=== PATIENT | male | born 1995 | race Caucasian/White ===

== ENCOUNTER 2017-04-01 08:49 | Emergency (ER) | payer OTHER ==
[~2017-04-01] VITALS: Ht 185.4 cm; Wt 80.0 kg
[~2017-04-01 08:49] MED LIST: DOXY100T PO
--- NOTE | 2017-04-01 09:28 | PD ---
HPI Chief Complaint: Medical Clearance Time Seen by Provider: 09:24 Travel History International Travel<30 days: No Contact w/Intl Traveler<30days: No History of Present Illness HPI PATIENT IS IN [facility], HE WAS DOING SQUAT JUMPS, STARTED TO BECOME LIGHTHEADED, AND SHAKY...EMS CALLED AND EVALUATED AND SENT IN TO ER FOR FURTHER EVALUATION.... NKDA, NO PMHX , NO PSHX PFSH Past Medical History Medical History: Denies Significant Hx Diminished Hearing: No Immunizations Current: No Past Surgical History Surgical History: No Previous Surgery Social History Alcohol Use: Yes (socially) Tobacco Use: No Substance Use: No Allergies-Medications (Allergen,Severity, Reaction): Coded Allergies: No Known Allergies (Unverified , 01/02/16) Reported Meds & Prescriptions Reported Meds & Active Scripts Active No Active Prescriptions or Reported Medications Review of Systems Except as stated in HPI: all other systems reviewed are Neg HENT: Positive: Lightheadedness Physical Exam Narrative GENERAL: SKIN: Warm and dry. HEAD: Atraumatic. Normocephalic. EYES: Pupils equal and round. No scleral icterus. No injection or drainage. ENT: No nasal bleeding or discharge. Mucous membranes pink and moist. NECK: Trachea midline. No JVD. CARDIOVASCULAR: Regular rate and rhythm. RESPIRATORY: No accessory muscle use. Clear to auscultation. Breath sounds equal bilaterally. GASTROINTESTINAL: Abdomen soft, non-tender, nondistended. Hepatic and splenic margins not palpable. MUSCULOSKELETAL: Extremities without clubbing, cyanosis, or edema. No obvious deformities. NEUROLOGICAL: Awake and alert. No obvious cranial nerve deficits. Motor grossly within normal limits. Five out of 5 muscle strength in the arms and legs. Normal speech. PSYCHIATRIC: Appropriate mood and affect; insight and judgment normal. Data Data Last Documented VS Vital Signs Date Time Temp Pulse Resp B/P (MAP) Pulse Ox O2 Delivery O2 Flow Rate FiO2 04/01/17 09:46 64 14 120/62 (81) 83 15 127/69 (88) 77 17 124/72 (89) 04/01/17 09:45 98.3 99 Room Air Orders Orders Electrocardiogram (04/01/17 09:24) Complete Blood Count With Diff (04/01/17 09:24) Comprehensive Metabolic Panel (04/01/17 09:24) Creatine Kinase (Cpk) (04/01/17 09:24) Thyroid Stimulating Hormone (04/01/17 09:24) Chest, Single Ap (04/01/17 09:24) Ct Brain W/O Iv Contrast(Rout) (04/01/17 09:24) Iv Access Insert/Monitor (04/01/17 09:24) Ecg Monitoring (04/01/17 09:24) Oximetry (04/01/17 09:24) Orthostatic Vital Signs (04/01/17 09:24) Blood Glucose (04/01/17 09:24) Drug Screen, Random Urine (04/01/17 09:24) Alcohol (Ethanol) (04/01/17 09:24) Salicylates (Aspirin) (04/01/17 09:24) Tylenol (Acetaminophen) (04/01/17 09:24) Sodium Chlor 0.9% 1000 Ml Inj (Ns 1000 M (04/01/17 10:45) Labs Laboratory Tests Test 04/01/17 09:20 White Blood Count 14.0 TH/MM3 Red Blood Count 5.11 MIL/MM3 Hemoglobin 15.6 GM/DL Hematocrit 45.3 % Mean Corpuscular Volume 88.6 FL Mean Corpuscular Hemoglobin 30.6 PG Mean Corpuscular Hemoglobin Concent 34.5 % Red Cell Distribution Width 12.9 % Platelet Count 264 TH/MM3 Mean Platelet Volume 8.3 FL Neutrophils (%) (Auto) 83.5 % Lymphocytes (%) (Auto) 9.6 % Monocytes (%) (Auto) 6.4 % Eosinophils (%) (Auto) 0.2 % Basophils (%) (Auto) 0.3 % Neutrophils # (Auto) 11.7 TH/MM3 Lymphocytes # (Auto) 1.3 TH/MM3 Monocytes # (Auto) 0.9 TH/MM3 Eosinophils # (Auto) 0.0 TH/MM3 Basophils # (Auto) 0.0 TH/MM3 CBC Comment DIFF FINAL Differential Comment Blood Urea Nitrogen 19 MG/DL Creatinine 1.35 MG/DL Random Glucose 97 MG/DL Total Protein 7.7 GM/DL Albumin 4.6 GM/DL Calcium Level 9.1 MG/DL Alkaline Phosphatase 51 U/L Aspartate Amino Transf (AST/SGOT) 22 U/L Alanine Aminotransferase (ALT/SGPT) 34 U/L Total Bilirubin 1.0 MG/DL Sodium Level 139 MEQ/L Potassium Level 3.5 MEQ/L Chloride Level 105 MEQ/L Carbon Dioxide Level 26.0 MEQ/L Anion Gap 8 MEQ/L Estimat Glomerular Filtration Rate 66 ML/MIN Total Creatine Kinase 270 U/L Thyroid Stimulating Hormone 3rd Gen 2.350 uIU/ML Salicylates Level LESS THAN 1.7 MG/DL Acetaminophen Level LESS THAN 2.0 MCG/ML Ethyl Alcohol Level LESS THAN 3 MG/DL MDM Medical Decision Making Medical Screen Exam Complete: Yes Emergency Medical Condition: Yes Medical Record Reviewed: Yes Interpretation(s) NSR, 63, SINUS ARRHYTHMIA NOTED, J POINT ELEV, NO STEMI PATTERN, Differential Diagnosis ANEMIA V DEHYDRATION V ELECTROLYTE ABNL V ICH V EXERTIONAL NEARSYNCOPE Narrative Course PATIENT WAS NOTED DEHYDRATION FOR WHICH HE WILL BE GIVEN 1L NS BOLUS, OTHERWISE REMAINDER OF EXAM WAS BENIGN AND NEGATIVE FOR DIFF DX Diagnosis Primary Impression: Vasovagal near-syncope Additional Impression: Dehydration Patient Instructions: General Instructions, Near Syncope (ED) Scripts No Active Prescriptions or Reported Meds Disposition: 01 DISCHARGE HOME Condition: Stable Mani Jaimes MD Apr 01, 2017 09:28
[2017-04-01 09:45] VITALS: BP 137/81; PULSE 72; RESP 15; TEMP 98.3; O2SAT 99
[2017-04-01 09:46] VITALS: BP_SYST 120; BP_SYST 124; BP_SYST 127; BP_DIAS 62; BP_DIAS 69; BP_DIAS 72; RESP 14; RESP 15; RESP 17
[2017-04-01 09:49] LABS: AUTOMATED NEUTROPHIL # 11.7 TH/MM3 (1.8-7.7); BASOPHIL % 0.3 % (0.0-2.0); EOSINOPHIL % 0.2 % (0.0-4.0); HEMATOCRIT 45.3 % (39.0-51.0); HEMO FLAGS DIFF FINAL; LYMPH % 9.6 % (9.0-44.0); LYMPHOCYTE # 1.3 TH/MM3 (1.0-4.8); MEAN CELL VOLUME 88.6 FL (80.0-100.0); MEAN CORPUSCULAR HEMOGLOBIN 30.6 PG (27.0-34.0); MEAN CORPUSCULAR HGB CONC 34.5 % (32.0-36.0); MONO % 6.4 % (0.0-8.0); NEUT % 83.5 % (16.0-70.0); PLATELET COUNT 264 TH/MM3 (150-450); RED BLOOD COUNT 5.11 MIL/MM3 (4.50-5.90); RED CELL DISTRIBUTION WIDTH 12.9 % (11.6-17.2)
[2017-04-01 10:03] LABS: ANION GAP 8 MEQ/L (5-15); AST (GOT) 22 U/L (15-37); BLOOD UREA NITROGEN 19 MG/DL (7-18); CHLORIDE 105 MEQ/L (98-107); GLOMERULAR FILTRATION RATE 66 ML/MIN (>89); POTASSIUM 3.5 MEQ/L (3.5-5.1); SODIUM (NA) 139 MEQ/L (136-145)
--- NOTE | 2017-04-01 10:13 | RADRPT ---
EXAM DATE/TIME: 04/01/2017 09:50 [facility] COMPARISON: No previous studies available for comparison. INDICATIONS : Patient complains of lightheaded, dizziness and near syncope MEDICAL HISTORY : None. SURGICAL HISTORY : None. ENCOUNTER: Initial ACUITY: 1 day PAIN SCORE: 0/10 LOCATION: Bilateral chest FINDINGS: A single view of the chest demonstrates the lungs to be symmetrically aerated without evidence of mas s, infiltrate or effusion. The cardiomediastinal contours are unremarkable. Osseous structures are intact. CONCLUSION: No acute disease. Nahum Manuel MD FACR on April 01, 2017 at 10:11 Board Certified Radiologist. This report was verified electronically.
--- NOTE | 2017-04-01 10:15 | RADRPT ---
EXAM DATE/TIME: 04/01/2017 10:01 [facility] COMPARISON: CT BRAIN W/O CONTRAST, January 02, 2016, 3:15. INDICATIONS : Feeling faint today RADIATION DOSE: 34.93 CTDIvol (mGy) MEDICAL HISTORY : None SURGICAL HISTORY : None. ENCOUNTER: Initial ACUITY: 1 day PAIN SCALE: 0/10 LOCATION: cranial TECHNIQUE: Multiple contiguous axial images were obtained of the head. Using automated exposure control and adj ustment of the mA and/or kV according to patient size, radiation dose was kept as low as reasonably a chievable to obtain optimal diagnostic quality images. DICOM format image data is available electro nically for review and comparison. FINDINGS: CEREBRUM: The ventricles are normal for age. No evidence of midline shift, mass lesion, hemorrhage or acute in farction. No extra-axial fluid collections are seen. POSTERIOR FOSSA: The cerebellum and brainstem are intact. The 4th ventricle is midline. The cerebellopontine angle i s unremarkable. EXTRACRANIAL: The visualized portion of the orbits is intact. SKULL: The calvaria is intact. No evidence of skull fracture. CONCLUSION: No acute disease. Nahum Manuel MD FACR on April 01, 2017 at 10:12 Board Certified Radiologist. This report was verified electronically.
[2017-04-01 10:17] LABS: ALKALINE PHOSPHATASE 51 U/L (45-117); ALT (GPT) 34 U/L (12-78); CREATINE KINASE 270 U/L (39-308)
[2017-04-01 10:19] LABS: ALCOHOL LESS THAN 3 MG/DL (0-5)
[2017-04-01 10:20] LABS: ACETAMINOPHEN LESS THAN 2.0 MCG/ML (10.0-30.0)
[2017-04-01] MEDS ORDERED: SODIUM CHLOR 0.9% 1000 ML INJ 1,000 ML IV ONE (10:45)
--- NOTE | 2017-04-01 20:07 | EKG ---
Date Performed: 04/01/2017 Time Performed: 09:23:34 PTAGE: 21 years EKG: Sinus rhythm WITH MARKED SINUS ARRHYTHMIA WITH SHORT TX INTERVAL MODERATE INTRAVENTRICULAR CONDUCTION DELAY ST EL EVATION, PROBABLY EARLY REPOLARIZATION BORDERLINE ECG PREVIOUS TRACING : 01/02/2016 03.24 Compared to prior tracing no significant change DOCTOR: Ion Watson Interpretating Date/Time 04/01/2017 20:05:45
== END 2017-04-01 13:05 | disposition home or self-care (01) ==
LOC: NEPE 08:49
DX: E86.0 Dehydration (principal); R55 Syncope and collapse; I49.8 Other specified cardiac arrhythmias
CPT/HCPCS: 70450; 71010; 80053; 80307; 82550; 84443; 85025; 93005; 99285; J7030